=== PATIENT | female | born 1990 | race Caucasian/White ===

== ENCOUNTER 2020-07-24 07:45 | Outpatient (CLI) | payer MEDICAID, SELFPAY ==
--- NOTE | 2020-07-24 07:54 | MR_ITS ---
WS: [id number] MRI LUMBAR SPINE NONCONTRAST TECHNIQUE: Sagittal T1, T2 and STIR imaging. Axial T1 and T2 imaging. CLINICAL INFORMATION: LOW BACK PAIN COMPARISON: None. FINDINGS: Counting performed from the craniocervical junction. L5 is partially sacralized. L1-L2: Normal. L2-L3: No significant disc bulging. Mild facet arthropathy. Spinal canal and foramen are patent. L3-L4: No significant disc bulging. Mild facet arthropathy. Spinal canal and foramen are patent. L4-L5: Tiny left lateral foraminal protrusion contacts the far exiting left L4 nerve root. Recommend correlation for left L4 nerve root symptoms. Right foramen is patent. Tiny shallow central protrusion . Moderate facet arthropathy. L5-S1: L5 is partially sacralized. Spinal canal and foramen are patent. Visualized pelvic bony structures: Normal. Paravertebral soft tissues: Normal. MR/MR lumbar spine wo con* [id number] IMPRESSION: 1. Counting performed from the craniocervical junction. L5 is partially sacral ized. 2. Tiny left lateral foraminal protrusion contacts the far exiting left L4 ner ve root. Recommend correlation left L4 nerve root symptoms. 3. Tiny shallow central protrusion L4-5 without significant nerve root impinge ment. 4. Moderate facet arthropathy L4-L5. 5. Mild facet arthropathy L2-L3 and L3-L4.
--- NOTE | 2020-07-24 07:54 | MR_ITS ---
WS: [id number] MRI THORACIC SPINE WITHOUT CONTRAST TECHNIQUE: Sagittal T1, T2 and STIR imaging. Axial T2 imaging. Noncontrast imaging obtained. CLINICAL INFORMATION: PAIN IN THORACIC SPINE COMPARISON: None. FINDINGS: Normal thoracic alignment. No acute compression. No high-grade central canal narrowing. No significan t disc protrusions or extrusions. Cord signal is normal. 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 Normal paravertebral soft tissues. Mild facet arthropa thy lower thoracic spine. MR/MR thoracic spin wo con* [id number] IMPRESSION: 1. Normal thoracic alignment. No acute compression. 2. Spinal canal is patent. Cord signal is normal. 3. No significant disc extrusions or protrusions. 4. Mild facet arthropathy lower thoracic spine.
== END 2020-07-24 07:46 | disposition home or self-care (01) ==
LOC: RADWPI 07:51
DX: M47.816 Spondylosis without myelopathy or radiculopathy, lumbar region (principal); M51.26 Other intervertebral disc displacement, lumbar region; M47.814 Spondylosis without myelopathy or radiculopathy, thoracic region
CPT/HCPCS: 72146; 72148

== ENCOUNTER → 2022-03-13 08:53 | Outpatient (BNVA) | payer BC, SELFPAY | PROVIDERS: Visit Provider Nurse Practitioner | DX: T78.40XA Allergy, unspecified, initial encounter (principal); X58.XXXA Exposure to other specified factors, initial encounter | CPT/HCPCS: 86003; 86008 ==